=== PATIENT | male | born 1975 | race Caucasian/White ===

== ENCOUNTER → 2016-08-18 | Outpatient (CLI) | payer MEDICARE, MEDICAID | END | disposition home or self-care (01) | LOC: YCFC.O 10:45 | PROVIDERS: ATTEND Nurse Practitioner Family | DX: R11.10 Vomiting, unspecified (principal) ==

== ENCOUNTER 2016-12-07 16:37 | Emergency (ER) | payer MEDICARE, MEDICAID ==
--- NOTE | 2016-12-07 17:01 | ED.PDOC ---
History of Present Illness - General Chief Complaint: Lower Extremity Injury Stated Complaint: LEFT KNEE PAIN Time Seen by Provider: 12/07/16 16:59 Source: patient Exam Limitations: no limitations - History of Present Illness Initial Comments: Aditya Zee 41 y/o male stated he had been having sharp left knee pain for the last one month denies history of trauma,fever.He stated he had history of remote left knee injury while playing high school foot ball.Stated no medical attention was taken. Occurred: other - one month ago Pain - Lower Extremity: moderate: Left Knee Method of Injury: unknown Improving Factors: immobilization Worsening Factors: movement Allergies/Adverse Reactions: Allergies Aspirin Allergy (Verified 03/19/16 19:37) Desipramine Allergy (Verified 03/19/16 19:37) Diphenhydramine [From Benadryl] Allergy (Verified 03/19/16 19:37) Thiothixene [From Navane] Allergy (Verified 03/19/16 19:37) Home Medications: Ambulatory Orders Tramadol HCl 50 mg PO TID PRN #20 tab 12/07/16 predniSONE 10 mg PO BID #10 tab 12/07/16 Review of Systems - Review of Systems Constitutional: States: no symptoms reported EENTM: States: no symptoms reported Respiratory: States: no symptoms reported Cardiology: States: no symptoms reported Gastrointestinal/Abdominal: States: no symptoms reported Genitourinary: States: no symptoms reported Musculoskeletal: States: joint pain - left knee Skin: States: no symptoms reported Neurological: States: no symptoms reported Endocrine: States: no symptoms reported Hematologic/Lymphatic: States: no symptoms reported Past Medical History (General) - Patient Medical History Hx Seizures: No Hx Stroke: No Hx Dementia: No Hx Asthma: No Hx of COPD: No Hx Cardiac Disorders: No Hx Congestive Heart Failure: No Hx Pacemaker: No Hx Hypertension: No Hx Thyroid Disease: No Hx Diabetes: No Hx Gastroesophageal Reflux: No Hx Renal Disease: No Hx Cancer: No Hx of HIV: No Hx Hepatitis C: No Hx MRSA: No Hx Other PMH: Yes - testicular cancer in remission Surgical History: other - orchiectomy,vasectomy - Vaccination History Hx Tetanus, Diphtheria Vaccination: No Hx Influenza Vaccination: No Hx Pneumococcal Vaccination: No - Social History Hx Tobacco Use: Yes Hx Chewing Tobacco Use: No Hx Alcohol Use: No Hx Substance Use: Yes - LSD; marijuana Hx Substance Use Treatment: No Hx Depression: No Hx Physical Abuse: No Hx Emotional Abuse: No Hx Suspected Abuse: No - Female History Patient : No Family Medical History - Family History Mother Family History: No Known Living Status: Age at (years of age): 61 Cause of : uterine cancer Hx Family Cancer: Yes - mom-cervical,lymphoma;dad -unknown cancer Physical Exam - Physical Exam General Appearance: Alert, Comfortable, No apparent distress Eyes, Ears, Nose, Throat: PERRL/EOMI, normal ENT inspection, TMs normal, other - edentulous Neck: non-tender, full range of motion, supple Cardiovascular/Respiratory: regular rate, rhythm, no M/R/G, normal peripheral pulses, no JVD, no respiratory distress Gastrointestinal/Abdominal: non-tender, no organomegaly Back: normal inspection, no CVA tenderness, no vertebral tenderness Thigh/Hip: normal inspection, non-tender, no evidence of injury Leg: normal inspection, no evidence of injury Knee: limited ROM - because of pain, soft tissue tenderness, swelling - upper part left patella Ankle: normal inspection, no evidence of injury Foot: normal inspection, no evidence of injury Neuro/Tendon: normal sensation, normal motor functions, normal tendon functions Mental Status: alert, oriented x 3 Skin: normal color, warm/dry Departure - Departure Clinical Impression: Bursitis of left knee Time of Disposition: 18:04 Disposition: Discharge to Home or Self Care Condition: Fair Departure Forms: ED Discharge - Pt. Copy, Patient Portal Self Enrollment Instructions: Soothing the Pain of Bursitis and Tendinopathy, Anserine Tendinobursitis Syndrome, DI for Bursitis Referrals: Marilyn Cox FNP [Primary Care Provider] - 1-2 Weeks Prescriptions: predniSONE 10 mg PO BID #10 tab Tramadol HCl 50 mg PO TID PRN #20 tab PRN Reason: Pain Home Medications: Ambulatory Orders Tramadol HCl 50 mg PO TID PRN #20 tab 12/07/16 predniSONE 10 mg PO BID #10 tab 12/07/16 Additional Instructions: Follow up with primary md 12/13/2016 for referral to ORTHOPEDIST
--- NOTE | 2016-12-07 17:44 | RAD ---
EXAM DESCRIPTION: Knee,Left 2 or More Views CLINICAL HISTORY: 41 years Male pain COMPARISON: None. TECHNIQUE: Left knee three view FINDINGS: Small amount of fluid in the suprapatellar bursa. No acute fracture. Mild degenerative spurring along the patella. IMPRESSION: No acute fracture is identified. Small effusion Electronically signed by: Vikki Pineda 12/07/2016 5:44 PM CDT
[2016-12-07] MEDS ORDERED: DEXAMETHASONE INJ 4 MG/ML VIAL IM ONE (18:02)
[2016-12-07] MEDS ORDERED: predniSONE 20 MG TAB PO ONE (18:02)
[2016-12-07] MEDS ORDERED: traMADol HCL 50 MG TAB PO ONE (18:03)
[2016-12-07 19:00] VITALS: BP 153/93; TEMP 97.8; O2SAT 96
== END 2016-12-07 18:40 | disposition home or self-care (01) ==
LOC: ER 16:37
DX: M70.52 Other bursitis of knee, left knee (principal); F12.90 Cannabis use, unspecified, uncomplicated; Z87.891 Personal history of nicotine dependence; Z85.47 Personal history of malignant neoplasm of testis; Z88.6 Allergy status to analgesic agent; Z88.8 Allergy status to other drugs, medicaments and biological substances
CPT/HCPCS: 73560; J1100; J7512